=== PATIENT | male | born 1960 | race Caucasian/White ===

== ENCOUNTER 2016-12-09 15:02 | Emergency (ER) | payer OTHER ==
[~2016-12-09] VITALS: Ht 175.3 cm; Wt 111.9 kg
[2016-12-09 17:44] VITALS: BP 133/84
== END 2016-12-09 18:03 | disposition home or self-care (01) ==
LOC: EME 15:02
DX: S61.011A Laceration without foreign body of right thumb without damage to nail, initial encounter (principal); W29.8XXA Contact with other powered hand tools and household machinery, initial encounter; Y93.E9 Activity, other interior property and clothing maintenance
CPT/HCPCS: 99281; 99284